=== PATIENT | male | born 1955 | race Caucasian/White ===

== ENCOUNTER → 2017-02-16 | Outpatient (REF) | payer BC | LOC: M LAB REF 09:32 | PROVIDERS: ATTEND Physician Assistant | DX: J02.9 Acute pharyngitis, unspecified (principal) ==

== ENCOUNTER 2019-05-22 14:08 | Emergency (ER) | payer BC ==
[~2019-05-22] VITALS: Ht 175.3 cm; Wt 78.3 kg
[~2019-05-22 14:08] MED LIST: ZOLP10TA2 PO
[2019-05-22] MEDS ORDERED: OMEP-218 PO (14:26)
[2019-05-22] MEDS ORDERED: ATOR1TAB21 PO (14:26)
[2019-05-22] MEDS: METOPROLOL 5 MG/5 ML VIAL IV SCH ×3 (15:06→15:17)
[2019-05-22 15:23] LABS: BASO # 0.1 10^3/uL (0.0-0.2); BASO % 0.7 % (0.0-1.0); EOS # 0.1 10^3/uL (0.0-0.5); EOS % 1.7 % (0.0-3.0); HEMATOCRIT 42.9 % (42.0-52.0); HEMOGLOBIN 14.9 g/dl (13.5-17.5); LYMPH # 1.5 10^3/uL (1.5-5.0); LYMPH % 20.1 % (24.0-44.0); MEAN CORPUSCULAR HGB CONC 34.7 g/dl (32.0-36.5); MEAN CORPUSCULAR VOLUME 100.7 fl (80.0-96.0); MONO # 0.8 10^3/uL (0.0-0.8); MONO % 10.8 % (0.0-5.0); NEUTROPHILS % 66.2 % (36.0-66.0); PLATELET COUNT, AUTOMATED 230 10^3/uL (150-450); RED BLOOD COUNT 4.26 10^6/uL (4.30-6.10); WHITE BLOOD COUNT 7.5 10^3/uL (4.0-10.0)
--- NOTE | 2019-05-22 15:24 | REP ---
Portable chest, 03:07 p.m., single AP view with the the patient sitting: There are no comparisons. The lung hong are clear. The cardiac size is normal. The gennaro, mediastinum, and skeletal structures are unremarkable. Impression: Negative portable chest. Electronically Signed by Keenan Genao MD 05/22/2019 03:16 P
[2019-05-22] MEDS ORDERED: METOPROLOL TART 50 MG TAB PO ONE ×2 (15:30→16:45)
[2019-05-22 15:35] LABS: INR 1.06; PROTHROMBIN TIME 13.5 SECONDS (11.8-14.0)
[2019-05-22 15:37] LABS: PARTIAL THROMBOPLASTIN TIME 28.4 SECONDS (25.0-38.4)
[2019-05-22 15:48] LABS: ALBUMIN 3.5 GM/DL (3.2-5.2); ALT/SGPT 25 U/L (12-78); BILIRUBIN,DIRECT 0.3 MG/DL (0.0-0.2); BILIRUBIN,TOTAL 1.3 MG/DL (0.2-1.0); BLOOD UREA NITROGEN 16 MG/DL (7-18); C REACTIVE PROTEIN QUANTITATIV 0.56 MG/DL (0.00-0.30); CARBON DIOXIDE LEVEL 28 MEQ/L (21-32); CHLORIDE LEVEL 107 MEQ/L (98-107); CK-MB VALUE MASS 2.4 NG/ML (<3.6); CPK CREATINE PHOSPHOKINASE 156 U/L (39-308); CREATININE FOR GFR 0.89 MG/DL (0.70-1.30); ETHYL ALCOHOL (ETHANOL) < 0.003 % (0.000-0.010); FREE T4 0.73 NG/DL (0.76-1.46); GLOMERULAR FILTRATION RATE > 60.0 (>49); GLUCOSE, FASTING 97 MG/DL (70-100); LDH LACTATE DEHYDROGENASE 218 U/L (87-241); MB/CK RELATIVE INDEX 1.54 (< OR =4); NT-PRO BNP 124 PG/ML (<125); POTASSIUM SERUM 4.1 MEQ/L (3.5-5.1); SODIUM LEVEL 141 MEQ/L (136-145); TOTAL PROTEIN 6.9 GM/DL (6.4-8.2); TROPONIN I < 0.02 NG/ML (< 0.10)
[2019-05-22 16:40] LABS: ERYTHROCYTE SEDIMENTATION RATE 11 mm/hr (0-20)
[2019-05-22 17:06] VITALS: BP 119/91
[2019-05-22 19:00] LABS: CK-MB VALUE MASS 2.2 NG/ML (<3.6); CPK CREATINE PHOSPHOKINASE 138 U/L (39-308); MB/CK RELATIVE INDEX 1.59 (< OR =4); TROPONIN I < 0.02 NG/ML (< 0.10)
[2019-05-22] MEDS ORDERED: ELIQ5TAB PO (19:54)
[2019-05-22] MEDS ORDERED: LOPR1TAB7 PO (19:54)
[2019-05-22 20:00] VITALS: BP 128/89
[2019-05-22] MEDS ORDERED: APIXABAN 5 MG TAB (ELIQUIS) PO ONE (20:00)
--- NOTE | 2019-05-22 20:32 | ECGEPIP ---
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
--- NOTE | 2019-05-22 20:35 | ECGEPIP ---
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
== END 2019-05-22 20:13 | disposition home or self-care (01) ==
LOC: M ED 14:08
DX: I48.91 Unspecified atrial fibrillation (principal); K21.9 Gastro-esophageal reflux disease without esophagitis; E78.5 Hyperlipidemia, unspecified; Z79.899 Other long term (current) drug therapy
CPT/HCPCS: 36415; 71045; 80048; 80076; 82550; 82553; 83615; 83880; 84439; 84443; 84484; 85025; 85610; 85652; 85730; 86140; 93005; 93041; 94760; 96374; 99285; G0480

== ENCOUNTER → 2019-08-22 | Outpatient (REF) | payer BC ==
[~2019-08-22] MED LIST changes: +ATOR1TAB21 PO; +ELIQ5TAB PO; +LOPR1TAB7 PO; +OMEP-218 PO
[2019-08-22 17:36] LABS: APPEARANCE, URINE CLEAR (CLEAR); BACTERIA, URINE AUTO NEGATIVE (NEGATIVE); BILIRUBIN, URINE AUTO NEGATIVE (NEGATIVE); BLOOD, URINE BLOOD NEGATIVE (NEGATIVE); COLOR, URINE YELLOW (YELLOW); GLUCOSE, URINE (UA) AUTO NEGATIVE (NEGATIVE); KETONE, URINE AUTO NEGATIVE (NEGATIVE); LEUKOCYTE ESTERASE, URINE AUTO NEGATIVE (NEGATIVE); MUCUS, URINE SMALL (NEGATIVE); NITRITE, URINE AUTO NEGATIVE (NEGATIVE); PROTEIN, URINE AUTO NEGATIVE (NEGATIVE); RBC, URINE AUTO 1 /HPF (0-3); SPECIFIC GRAVITY URINE AUTO 1.025 (1.002-1.035); SQUAMOUS EPITHELIAL CELL UR AU 0 /HPF (0-6); UROBILINOGEN, URINE AUTO 0.2 mg/dL (0.0-2.0); WBC, URINE AUTO 2 /HPF (0-3)
== END ==
LOC: M SMT 16:51
PROVIDERS: ATTEND Nurse Practitioner Women's Health
DX: R97.20 Elevated prostate specific antigen [PSA] (principal)

== ENCOUNTER → 2019-10-24 | Outpatient (CLI) | payer BC | LOC: M SLEEP 19:26 | PROVIDERS: ATTEND Nurse Practitioner Family | DX: R06.83 Snoring (principal) ==

== ENCOUNTER → 2019-11-13 | Outpatient (CLI) | payer BC ==
--- NOTE | 2019-11-15 15:31 | SLEEPCENT ---
DATE OF PROCEDURE: 11/13/2019 Ordered by: YUNI Ware Nocturnal polysomnography was performed for the titration of pressure therapy in this patient with obstructive sleep apnea syndrome. Apnea-hypopnea index 18.6. For testing a ResMed AirFit F20 full face mask of large size was used, 4 cm of water pressure were applied to the circuit and the lights were extinguished. 7 hours and 3 minutes of data were reviewed. There were 265.5 minutes of sleep identified. Sleep latency was prolonged at 106.5 minutes. REM latency was likewise prolonged at 182 minutes. Sleep architecture improved over the course of the study with optimal pressure titration. There were two REM cycles noted. Overall sleep efficiency was 63.7%. The patient's electrocardiogram showed a sinus rhythm with an average heart rate of 65 beats per minute. EEG showed normal waveforms for awake and sleep. Respiratory events were fully palliated with C-PAP at a pressure of +12 and remaining measures of sleep physiology were normal. IMPRESSION Obstructive sleep apnea syndrome (G47.33) RECOMMENDATIONS Nightly use of pressure therapy 12 cm of water.
== END ==
LOC: M SLEEP 20:00
PROVIDERS: ATTEND Nurse Practitioner Family
DX: G47.33 Obstructive sleep apnea (adult) (pediatric) (principal)

== ENCOUNTER → 2021-02-03 | Outpatient (CLI) | payer BC ==
[~2021-02-03] MED LIST changes: +ASPI-161 PO; +D32000TA PO; +FLEC25TA; +VITA500C19 PO; +VITMTA PO
== END ==
LOC: M LABSMTC 10:58
PROVIDERS: ATTEND Anesthesiology
DX: Z01.818 Encounter for other preprocedural examination (principal); Z11.52 Encounter for screening for COVID-19

== ENCOUNTER → 2021-04-01 | Outpatient (CLI) | payer BC | LOC: M LABSMTC 11:01 | PROVIDERS: ATTEND Anesthesiology | DX: Z01.818 Encounter for other preprocedural examination (principal); Z11.52 Encounter for screening for COVID-19 ==

== ENCOUNTER 2021-04-05 11:33 | Day surgery (SDC) | payer BC ==
[~2021-04-05] VITALS: Ht 175.3 cm; Wt 70.8 kg
[~2021-04-05 11:33] MED LIST changes: +NS 1,000 ML IV ONE
[2021-04-05] MEDS ORDERED: METO50TA7 PO (12:06)
[2021-04-05] MEDS ORDERED: LIDOCAINE 2% 100MG/5ML SDV (FOR ANES.) As Ordered ONE (12:40)
[2021-04-05] MEDS ORDERED: propofoL 500 MG/50 ML VIAL As Ordered ONE (12:40)
--- NOTE | 2021-04-05 12:57 | ROOR ---
Patient Name: Davon Duncan Procedure Date: 04/05/2021 12:37 PM Date of : 1955 Age: 65 Room: [facility] Gender: Male Note Status: Finalized Procedure: Total Colonoscopy to Cecum Indications: Screening for colorectal malignant neoplasm Providers: Paul Bassett MD Referring MD: ELIZABETH SINGH JR, MD Requesting Provider: Medicines: Monitored Anesthesia Care Complications: No immediate complications. Procedure: Pre-Anesthesia Assessment: - The heart rate, respiratory rate, oxygen saturations, blood pressure, adequacy of pulmonary ventilation, and response to care were monitored throughout the procedure. The Colonoscope was introduced through the anus and advanced to the cecum, identified by appendiceal orifice and ileocecal valve. The colonoscopy was performed without difficulty. The patient tolerated the procedure well. The quality of the bowel preparation was excellent. Findings: The perianal and digital rectal examinations were normal. Non-bleeding internal hemorrhoids were found during retroflexion. The hemorrhoids were small and Grade I (internal hemorrhoids that do not prolapse). Multiple small and large-mouthed diverticula were found in the recto-sigmoid colon, sigmoid colon and descending colon. The exam was otherwise without abnormality on direct and retroflexion views. Impression: - Non-bleeding internal hemorrhoids. - Diverticulosis in the recto-sigmoid colon, in the sigmoid colon and in the descending colon. - The examination was otherwise normal on direct and retroflexion views. - No specimens collected. - The exam was otherwise normal to the cecum. Recommendation: - Patient has a contact number available for emergencies. The signs and symptoms of potential delayed complications were discussed with the patient. Return to normal activities tomorrow. Written discharge instructions were provided to the patient. - High fiber diet. - Discharge patient to home. - Continue present medications. - Repeat colonoscopy in 10 years for screening purposes. - Return to referring physician. - The findings and recommendations were discussed with the patient's family. Procedure Code(s): --- Professional --- 83932, Colonoscopy, flexible; diagnostic, including collection of specimen(s) by brushing or washing, when performed (separate procedure) Diagnosis Code(s): --- Professional --- Z12.11, Encounter for screening for malignant neoplasm of colon K64.0, First degree hemorrhoids K57.30, Diverticulosis of large intestine without perforation or abscess without bleeding CPT copyright 2019 [employer]. All rights reserved. The codes documented in this report are preliminary and upon automotive detailer review may be revised to meet current compliance requirements. Paul Bassett MD Paul Bassett MD 04/05/2021 12:56:50 PM Electronically signed by Paul Bassett MD Number of Addenda: 0 Note Initiated On: 04/05/2021 12:37 PM Estimated Blood Loss: Estimated blood loss: none.
[2021-04-05 13:38] VITALS: BP 120/68
== END 2021-04-05 13:43 | disposition home or self-care (01) ==
LOC: M OPP 11:33
PROVIDERS: ATTEND Internal Medicine Gastroenterology
DX: Z12.11 Encounter for screening for malignant neoplasm of colon (principal); K64.0 First degree hemorrhoids; K57.30 Diverticulosis of large intestine without perforation or abscess without bleeding; I48.91 Unspecified atrial fibrillation; E78.5 Hyperlipidemia, unspecified; G47.30 Sleep apnea, unspecified; Z85.72 Personal history of non-Hodgkin lymphomas; Z92.21 Personal history of antineoplastic chemotherapy; Z92.3 Personal history of irradiation; Z79.82 Long term (current) use of aspirin; Z79.899 Other long term (current) drug therapy

== ENCOUNTER → 2021-10-15 | Outpatient (REF) | payer BC ==
[~2021-10-15] MED LIST changes: +METO50TA7 PO; -NS 1,000 ML IV ONE; +OMEP-173 PO; -OMEP-218 PO
== END ==
LOC: M LAB REF 16:17
PROVIDERS: ATTEND Internal Medicine
DX: R21 Rash and other nonspecific skin eruption (principal)

== ENCOUNTER → 2022-02-05 | Outpatient (REF) | payer BC | LOC: M LAB REF 16:24 | PROVIDERS: ATTEND Internal Medicine | DX: Z12.5 Encounter for screening for malignant neoplasm of prostate (principal) ==

== ENCOUNTER → 2022-04-29 | Outpatient (REF) | payer BC | LOC: M SMT 13:05 | PROVIDERS: ATTEND Urology | DX: R97.20 Elevated prostate specific antigen [PSA] (principal); N40.2 Nodular prostate without lower urinary tract symptoms ==

== ENCOUNTER 2022-06-08 20:17 | Inpatient (IN) | payer BC ==
[~2022-06-08] VITALS: Ht 175.3 cm; Wt 76.8 kg
[~2022-06-08 20:17] MED LIST changes: -FLEC25TA; +FLEC25TA PO
[2022-06-08 21:21] LABS: BASO % 0.3 % (0.0-1.0); EOS % 0.2 % (0.0-3.0); HEMATOCRIT 28.6 % (42.0-52.0); HEMOGLOBIN 9.6 g/dl (13.5-17.5); LYMPH # 1.3 10^3/uL (1.5-5.0); LYMPH % 11.3 % (24.0-44.0); MEAN CORPUSCULAR HEMOGLOBIN 33.7 pg (27.0-33.0); MEAN CORPUSCULAR HGB CONC 33.6 g/dl (32.0-36.5); MEAN CORPUSCULAR VOLUME 100.4 fl (80.0-96.0); MONO # 0.8 10^3/uL (0.0-0.8); MONO % 6.5 % (2.0-8.0); NEUTROPHILS # 9.3 10^3/uL (1.5-8.5); NEUTROPHILS % 81.3 % (36.0-66.0); PLATELET COUNT, AUTOMATED 175 10^3/uL (150-450); RED BLOOD COUNT 2.85 10^6/uL (4.30-6.10); WHITE BLOOD COUNT 11.5 10^3/uL (4.0-10.0)
[2022-06-08 21:36] LABS: INR 1.06
[2022-06-08 21:37] LABS: PARTIAL THROMBOPLASTIN TIME 25.6 SECONDS (24.8-34.2)
[2022-06-08 21:59] LABS: ALBUMIN 3.3 GM/DL (3.2-5.2); ALT/SGPT 26 U/L (12-78); BILIRUBIN,DIRECT 0.3 MG/DL (0.0-0.2); BILIRUBIN,TOTAL 1.2 MG/DL (0.2-1.0); BLOOD UREA NITROGEN 38 MG/DL (7-18); CALCIUM LEVEL 8.8 MG/DL (8.8-10.2); CARBON DIOXIDE LEVEL 26 MEQ/L (21-32); CHLORIDE LEVEL 104 MEQ/L (98-107); CREATININE FOR GFR 0.98 MG/DL (0.70-1.30); GLOMERULAR FILTRATION RATE > 60.0 (>49); GLUCOSE, FASTING 126 MG/DL (70-100); LIPASE 141 U/L (73-393); SODIUM LEVEL 136 MEQ/L (136-145); TOTAL PROTEIN 6.1 GM/DL (6.4-8.2)
[2022-06-08 22:05] LABS: CK-MB VALUE MASS 1.5 NG/ML (<3.6); MB/CK RELATIVE INDEX 1.76 (< OR =4)
[2022-06-08] MEDS: GASTROGRAFIN SOLUTION 30ML PO SCH ×2 (22:09→22:40)
[2022-06-08 22:28] LABS: RSV AMPLIFICATION NEGATIVE (NEGATIVE)
[2022-06-08 22:32] LABS: CK-MB VALUE MASS 1.3 NG/ML (<3.6); MB/CK RELATIVE INDEX 1.71 (< OR =4)
[2022-06-08] MEDS ORDERED: ISOVUE-370 76% 100ML VIAL As Ordered ONE (23:26)
[2022-06-09] MEDS ORDERED: PANTOPRAZOLE SODIUM 40 MG in D5W 50 ML IV SCH (01:00)
[2022-06-09] MEDS ORDERED: SUCRALFATE 1 GM TAB PO ONE (01:10)
[2022-06-09] MEDS ORDERED: ZOLP10TA2 PO (01:43)
[2022-06-09] MEDS ORDERED: METO1TAB33 PO (01:44)
[2022-06-09] MEDS ORDERED: NS 1,000 ML IV SCH (01:50)
[2022-06-09] MEDS ORDERED: HOME MED LIST COMPLETE! XX SCH (01:50)
[2022-06-09] MEDS: PANTOPRAZOLE SODIUM 40 MG in D5W 50 ML IV SCH ×2 (01:50→05:54)
[2022-06-09 03:56] LABS: HEMATOCRIT 25.3 % (42.0-52.0); HEMOGLOBIN 8.5 g/dl (13.5-17.5)
[2022-06-09 05:36] LABS: HEMATOCRIT 25.7 % (42.0-52.0); HEMOGLOBIN 8.6 g/dl (13.5-17.5); MEAN CORPUSCULAR HEMOGLOBIN 33.5 pg (27.0-33.0); MEAN CORPUSCULAR HGB CONC 33.5 g/dl (32.0-36.5); PLATELET COUNT, AUTOMATED 158 10^3/uL (150-450); RED BLOOD COUNT 2.57 10^6/uL (4.30-6.10); WHITE BLOOD COUNT 9.6 10^3/uL (4.0-10.0)
[2022-06-09 06:08] LABS: BLOOD UREA NITROGEN 28 MG/DL (7-18); CALCIUM LEVEL 8.4 MG/DL (8.8-10.2); CARBON DIOXIDE LEVEL 27 MEQ/L (21-32); CHLORIDE LEVEL 106 MEQ/L (98-107); CREATININE FOR GFR 0.87 MG/DL (0.70-1.30); GLOMERULAR FILTRATION RATE > 60.0 (>49); GLUCOSE, FASTING 109 MG/DL (70-100); POTASSIUM SERUM 3.5 MEQ/L (3.5-5.1); SODIUM LEVEL 137 MEQ/L (136-145)
[2022-06-09 08:43] LABS: HEMATOCRIT 25.2 % (42.0-52.0); HEMOGLOBIN 8.5 g/dl (13.5-17.5)
[2022-06-09] MEDS: SUCRALFATE SUSP 1GM/10ML UD PO SCH ×4 (09:35→23:06)
[2022-06-09] MEDS: METOPROLOL TART 50 MG TAB PO SCH ×2 (09:35→22:35)
[2022-06-09] MEDS: OMEPRAZOLE 20MG CAP PO SCH ×2 (09:35→23:06)
[2022-06-09] MEDS: FLECAINIDE 50MG TABLET PO SCH ×2 (09:38→22:38)
[2022-06-09] MEDS: KCL 20MEQ IN 0.45NS 1000ML 1,000 ML IV SCH (15:03)
[2022-06-09 15:58] LABS: HEMATOCRIT 23.5 % (42.0-52.0); HEMOGLOBIN 7.9 g/dl (13.5-17.5)
[2022-06-09 16:51] VITALS: BP 102/62
[2022-06-09] MEDS ORDERED: PREVNAR-20 VACCINE 0.5ML SYRINGE IM.IMMUN ONE (19:00)
[2022-06-09 21:50] VITALS: BP 98/62
[2022-06-09 22:19] LABS: HEMATOCRIT 24.4 % (42.0-52.0); HEMOGLOBIN 8.2 g/dl (13.5-17.5)
[2022-06-10 02:19] VITALS: BP 106/66
[2022-06-10] MEDS: KCL 20MEQ IN 0.45NS 1000ML 1,000 ML IV SCH (02:26)
[2022-06-10 04:15] LABS: HEMATOCRIT 22.8 % (42.0-52.0); HEMOGLOBIN 7.6 g/dl (13.5-17.5); MEAN CORPUSCULAR HEMOGLOBIN 33.6 pg (27.0-33.0); MEAN CORPUSCULAR HGB CONC 33.3 g/dl (32.0-36.5); MEAN CORPUSCULAR VOLUME 100.9 fl (80.0-96.0); PLATELET COUNT, AUTOMATED 149 10^3/uL (150-450); RED BLOOD COUNT 2.26 10^6/uL (4.30-6.10); WHITE BLOOD COUNT 6.8 10^3/uL (4.0-10.0)
[2022-06-10 04:49] LABS: BLOOD UREA NITROGEN 12 MG/DL (7-18); CARBON DIOXIDE LEVEL 26 MEQ/L (21-32); CHLORIDE LEVEL 109 MEQ/L (98-107); CREATININE FOR GFR 0.78 MG/DL (0.70-1.30); GLOMERULAR FILTRATION RATE > 60.0 (>49); GLUCOSE, FASTING 95 MG/DL (70-100); POTASSIUM SERUM 3.6 MEQ/L (3.5-5.1); SODIUM LEVEL 140 MEQ/L (136-145)
[2022-06-10 06:00] VITALS: BP 103/67
[2022-06-10] MEDS: FLECAINIDE 50MG TABLET PO SCH (08:29)
[2022-06-10 08:34] VITALS: BP 103/67
[2022-06-10] MEDS: METOPROLOL TART 50 MG TAB PO SCH (08:34)
[2022-06-10] MEDS: OMEPRAZOLE 20MG CAP PO SCH (08:35)
[2022-06-10] MEDS: SUCRALFATE SUSP 1GM/10ML UD PO SCH ×2 (08:35→14:17)
[2022-06-10 09:31] LABS: HEMATOCRIT 25.5 % (42.0-52.0); HEMOGLOBIN 8.3 g/dl (13.5-17.5)
[2022-06-10 13:24] LABS: HEMOGLOBIN 8.2 g/dl (13.5-17.5)
[2022-06-10 14:00] VITALS: BP 110/60
[2022-06-10] MEDS ORDERED: OMEP-173 PO (15:21)
[2022-06-10] MEDS ORDERED: CARA1TAB6 PO (15:21)
== END 2022-06-10 16:53 | disposition home or self-care (01) | DRG 254 ==
LOC: M ED 20:17 → M ED INP 06-09 01:48 → ENRESERV 06-09 14:52 → M MSPAV 06-09 16:51
PROVIDERS: ADMIT Internal Medicine; ATTEND Family Medicine
DX: K92.1 Melena (principal); A04.4 Other intestinal Escherichia coli infections; C61 Malignant neoplasm of prostate; I48.0 Paroxysmal atrial fibrillation; D50.0 Iron deficiency anemia secondary to blood loss (chronic); I95.1 Orthostatic hypotension; Z85.79 Personal history of other malignant neoplasms of lymphoid, hematopoietic and related tissues; Z79.82 Long term (current) use of aspirin; Z79.899 Other long term (current) drug therapy; K21.9 Gastro-esophageal reflux disease without esophagitis; Z98.41 Cataract extraction status, right eye; Z98.42 Cataract extraction status, left eye; K92.0 Hematemesis

== ENCOUNTER → 2022-06-11 | Outpatient (CLI) | payer BC ==
[~2022-06-11] MED LIST changes: +CARA1TAB6 PO; +METO1TAB33 PO
== END ==
LOC: M LAB 17:02
PROVIDERS: ATTEND Family Medicine
DX: K92.1 Melena (principal); D50.0 Iron deficiency anemia secondary to blood loss (chronic)

== ENCOUNTER → 2022-07-27 | Outpatient (CLI) | payer BC ==
[2022-07-27 15:19] LABS: CREATININE FOR GFR 0.81 MG/DL (0.70-1.30); GLOMERULAR FILTRATION RATE > 60.0 (>49)
== END ==
LOC: M LAB 14:32
PROVIDERS: ATTEND Radiology Radiation Oncology
DX: C61 Malignant neoplasm of prostate (principal)

== ENCOUNTER → 2022-10-01 | Outpatient (REF) | payer BC ==
[2022-10-02 11:39] LABS: PERCENT SATURATION 40.5 % (19.7-50.0)
== END ==
LOC: M LAB REF 10:23
PROVIDERS: ATTEND Internal Medicine
DX: D64.9 Anemia, unspecified (principal)

== ENCOUNTER → 2022-11-09 | Outpatient (CLI) | payer MEDICARE, SELFPAY ==
[2022-11-09 15:55] LABS: FREE T4 0.85 NG/DL (0.89-1.76); THYROID STIMULATING HORMONE 3.696 uIU/ML (0.55-4.78)
== END ==
LOC: M LAB 14:06
PROVIDERS: ATTEND Internal Medicine
DX: E07.9 Disorder of thyroid, unspecified (principal)

== ENCOUNTER → 2023-07-31 | Outpatient (CLI) | payer MEDICARE | LOC: M RAD 12:55 | PROVIDERS: ATTEND Internal Medicine | DX: R09.89 Other specified symptoms and signs involving the circulatory and respiratory systems (principal) ==

== ENCOUNTER → 2025-05-21 | Outpatient (CLI) | payer MEDICARE ==
[~2025-05-21] MED LIST changes: -ASPI-161 PO; +ASPI-615 PO; -VITA500C19 PO; +VITA500C22 PO; +ZOLP10TA11 PO; -ZOLP10TA2 PO
== END ==
LOC: M LAB 13:13
PROVIDERS: ATTEND Radiology Radiation Oncology
DX: C61 Malignant neoplasm of prostate (principal)

== ENCOUNTER → 2025-07-25 | Outpatient (CLI) | payer MEDICARE | LOC: M LAB 17:14 | PROVIDERS: ATTEND Urology | DX: C61 Malignant neoplasm of prostate (principal) ==

== ENCOUNTER → 2025-08-03 | Outpatient (CLI) | payer MEDICARE ==
[~2025-08-03] MED LIST changes: +LEVO25CA2 PO; +TAMS1CAP17 PO; +VITACAP8 PO
== END ==
LOC: M ONCR 13:45
PROVIDERS: ATTEND General Practice
DX: C61 Malignant neoplasm of prostate (principal); C77.5 Secondary and unspecified malignant neoplasm of intrapelvic lymph nodes; R97.21 Rising PSA following treatment for malignant neoplasm of prostate; Z79.818 Long term (current) use of other agents affecting estrogen receptors and estrogen levels; Z79.899 Other long term (current) drug therapy; Z92.3 Personal history of irradiation